=== PATIENT | female | born 1955 | race Caucasian/White ===

== ENCOUNTER 2017-11-29 05:32 | Day surgery (SDC) | payer BC ==
[~2017-11-29] VITALS: Ht 152.4 cm; Wt 122.5 kg
[2017-11-29] MEDS ORDERED: OXYCODONE/ACETAMINOPHEN 5-325 TABLET PO PRN ×2 (10:30)
[2017-11-29] MEDS ORDERED: IBUPROFEN 800 MG TABLET PO PRN (10:30)
[2017-11-29] MEDS ORDERED: ONDANSETRON HCL 4 MG/2 ML VIAL IVP PRN (10:30)
[2017-11-29 11:10] VITALS: BP_SYST 116
[2017-11-29] MEDS ORDERED: fentaNYL CITRATE/PF 100 MCG/2 ML AMP IVP PRN (11:15)
== END 2017-11-29 12:50 | disposition home or self-care (01) ==
LOC: SDS 05:32
PROVIDERS: ATTEND Obstetrics & Gynecology
DX: D25.9 Leiomyoma of uterus, unspecified (principal); N85.2 Hypertrophy of uterus
CPT/HCPCS: 36415; 58558; 86886; 86900; 86901; 88305; J7120